=== PATIENT | male | born 1995 | race Hispanic/Latino ===

== ENCOUNTER 2018-08-11 22:20 | Emergency (ER) | payer SELFPAY ==
--- NOTE | 2018-08-11 23:16 | ER ---
Nurse's Notes [facility] Name: Evgeny Cardenas Age: 23 yrs Sex: Male : 1995 Arrival Date: 08/11/2018 Time: 22:22 Bed 5 Private MD: Diagnosis: Shortness of breath;Bronchitis, not specified as acute or chronic Presentation: 08/11 22:32 Presenting complaint: Patient states: "I went to lay down and go to sleep and then all lp1 of a sudden I felt like my lungs got tight and I couldn't get a breath and it scared me"; Patient states improvement now but still feels slight tightness in lungs; Seen previously at [facility] and given Azithromycin prescription for "bacteria in lung". Transition of care: patient was not received from another setting of care. Onset of symptoms was August 11, 2018. Risk Assessment: Do you want to hurt yourself or someone else? Patient reports no desire to harm self or others. Initial Sepsis Screen: Does the patient meet any 2 criteria? No. Patient's initial sepsis screen is negative. Does the patient have a suspected source of infection? No. Patient's initial sepsis screen is negative. Care prior to arrival: None. 22:32 Method Of Arrival: Ambulatory lp1 22:32 Acuity: ALEXANDRA 3 lp1 Historical: - Allergies: 22:37 Motrin IB; lp1 - Home Meds: 22:37 None [Active]; lp1 - PMHx: 22:37 None; lp1 - PSHx: 22:37 None; lp1 - Immunization history:: Adult Immunizations up to date. - Social history:: Smoking status: Patient/guardian denies using tobacco. - Ebola Screening: : No symptoms or risks identified at this time. Screenin:37 Abuse screen: Denies threats or abuse. Denies injuries from another. Nutritional lp1 screening: No deficits noted. Tuberculosis screening: No symptoms or risk factors identified. Fall Risk None identified. Assessment: 22:45 General: Appears in no apparent distress. uncomfortable, Behavior is cooperative, tl2 appropriate for age, anxious. Pain: Denies pain. Neuro: Level of Consciousness is awake, alert, obeys commands, Oriented to person, place, time, situation. Cardiovascular: Denies chest pain. Respiratory: Reports shortness of breath why laying flat cough that is Airway is patent Respiratory effort is even, unlabored, Respiratory pattern is regular, symmetrical. GI: No signs and/or symptoms were reported involving the gastrointestinal system. : No signs and/or symptoms were reported regarding the genitourinary system. Derm: Skin is pink, warm \\T\\ dry. 23:39 Reassessment: Patient appears in no apparent distress at this time. Patient and/or tl2 family updated on plan of care and expected duration. Pain level reassessed. Patient is alert, oriented x 3, equal unlabored respirations, skin warm/dry/pink. pt verbalized understanding of discharge instructions, need for follow up and prescription usage. Vital Signs: 22:37 BP 128 / 93; Pulse 67; Resp 16; Temp 98(O); Pulse Ox 100% on R/A; Weight 64.86 kg; lp1 Height 5 ft. 7 in. (170.18 cm); Pain 3/10; 23:39 BP 116 / 66; Pulse 69; Resp 18; Pulse Ox 98% on R/A; tl2 22:37 Body Mass Index 22.40 (64.86 kg, 170.18 cm) lp1 ED Course: 22:22 Patient arrived in ED. am2 22:25 Disha Jones FNP-C is [facility]. snw 22:25 Ted Reilly MD is Attending Physician. snw 22:25 Gerri Dash, JORDY is Primary Nurse. tl2 22:36 Triage completed. lp1 22:37 Arm band placed on left wrist. lp1 22:55 Chest Pa And Lat (2 Views) XRAY In Process Unspecified. EDMS 23:14 Patient has correct armband on for positive identification. Bed in low position. Call tl2 light in reach. Side rails up X 1. Adult w/ patient. 23:39 No provider procedures requiring assistance completed. Patient did not have IV access tl2 during this emergency room visit. Administered Medications: No medications were administered Outcome: 23:16 Discharge ordered by . snw 23:39 Discharged to home ambulatory, with family. tl2 23:39 Condition: stable 23:39 Discharge instructions given to patient, family, Instructed on discharge instructions, follow up and referral plans. medication usage, Demonstrated understanding of instructions, follow-up care, medications, Prescriptions given X 1. 23:41 Patient left the ED. tl2 Signatures: Dispatcher [employer] EDMS Disha Jones, TATYANA-C DENTIST ATTENDANT-Csnw Eileen Watkins RN RN lp1 Gerri Dash RN RN tl2 Giuliana Atkinson am2
--- NOTE | 2018-08-11 23:17 | EDPHYS ---
Physician Documentation [facility] Name: Evgeny Cardenas Age: 23 yrs Sex: Male : 1995 Arrival Date: 08/11/2018 Time: 22:22 Bed 5 Private MD: ED Physician Ted Reilly HPI: 08/11 23:04 This 23 yrs old Male presents to ER via Ambulatory with complaints of snw Shortness Of Breath. 23:04 The patient has shortness of breath at rest. Onset: The symptoms/episode began/occurred snw suddenly, 1 week(s) ago, and improved pt worked all day and then had a resurgence of s/s. Duration: The symptoms are continuous. The patient's shortness of breath is aggravated by exertion. Severity of symptoms: At their worst the symptoms were moderate. The patient has not experienced similar symptoms in the past. The patient has been recently seen by a physician: Pt seen x 2 last week in [place], rec'd shots x 2 and then a z-pack. Historical: - Allergies: 22:37 Motrin IB; lp1 - Home Meds: 22:37 None [Active]; lp1 - PMHx: 22:37 None; lp1 - PSHx: 22:37 None; lp1 - Immunization history:: Adult Immunizations up to date. - Social history:: Smoking status: Patient/guardian denies using tobacco. - Ebola Screening: : No symptoms or risks identified at this time. ROS: 22:54 Constitutional: Negative for fever, chills, and weight loss, Eyes: Negative for injury, snw pain, redness, and discharge, ENT: Negative for injury, pain, and discharge, Neck: Negative for injury, pain, and swelling, Cardiovascular: Negative for chest pain, palpitations, and edema, Abdomen/GI: Negative for abdominal pain, nausea, vomiting, diarrhea, and constipation, Back: Negative for injury and pain, : Negative for injury, bleeding, discharge, and swelling, MS/Extremity: Negative for injury and deformity, Skin: Negative for injury, rash, and discoloration, Neuro: Negative for headache, weakness, numbness, tingling, and seizure. 22:54 Respiratory: Positive for feels tight around ribs, short of breath, pt states he started to "freak out". Exam: 22:54 Constitutional: This is a well developed, well nourished patient who is awake, alert, snw and in no acute distress. Head/Face: Normocephalic, atraumatic. Eyes: Pupils equal round and reactive to light, extra-ocular motions intact. Lids and lashes normal. Conjunctiva and sclera are non-icteric and not injected. Cornea within normal limits. Periorbital areas with no swelling, redness, or edema. ENT: Nares patent. No nasal discharge, no septal abnormalities noted. Tympanic membranes are normal and external auditory canals are clear. Oropharynx with no redness, swelling, or masses, exudates, or evidence of obstruction, uvula midline. Mucous membranes moist. Neck: Trachea midline, no thyromegaly or masses palpated, and no cervical lymphadenopathy. Supple, full range of motion without nuchal rigidity, or vertebral point tenderness. No Meningismus. Chest/axilla: Normal chest wall appearance and motion. Nontender with no deformity. No lesions are appreciated. Cardiovascular: Regular rate and rhythm with a normal S1 and S2. No gallops, murmurs, or rubs. Normal PMI, no JVD. No pulse deficits. Abdomen/GI: Soft, non-tender, with normal bowel sounds. No distension or tympany. No guarding or rebound. No evidence of tenderness throughout. Back: No spinal tenderness. No costovertebral tenderness. Full range of motion. Skin: Warm, dry with normal turgor. Normal color with no rashes, no lesions, and no evidence of cellulitis. MS/ Extremity: Pulses equal, no cyanosis. Neurovascular intact. Full, normal range of motion. Neuro: Awake and alert, GCS 15, oriented to person, place, time, and situation. Cranial nerves II-XII grossly intact. Motor strength 5/5 in all extremities. Sensory grossly intact. Cerebellar exam normal. Normal gait. Psych: Awake, alert, with orientation to person, place and time. Behavior, mood, and affect are within normal limits. 22:54 Respiratory: the patient does not display signs of respiratory distress, Respirations: no acute changes, Breath sounds: are clear throughout, no bronchial sounds. Vital Signs: 22:37 BP 128 / 93; Pulse 67; Resp 16; Temp 98(O); Pulse Ox 100% on R/A; Weight 64.86 kg; lp1 Height 5 ft. 7 in. (170.18 cm); Pain 3/10; 23:39 BP 116 / 66; Pulse 69; Resp 18; Pulse Ox 98% on R/A; tl2 22:37 Body Mass Index 22.40 (64.86 kg, 170.18 cm) lp1 MDM: 22:25 Patient medically screened. snw 23:18 Data reviewed: vital signs, nurses notes. Data interpreted: Pulse oximetry: on room air snw is 100 %. Interpretation: normal. Counseling: I had a detailed discussion with the patient and/or guardian regarding: the historical points, exam findings, and any diagnostic results supporting the discharge/admit diagnosis, the presence of at least one elevated blood pressure reading (>120/80) during this emergency department visit, radiology results, the need for outpatient follow up, to return to the emergency department if symptoms worsen or persist or if there are any questions or concerns that arise at home. 08/11 22:31 Order name: Chest Pa And Lat (2 Views) XRAY snw Administered Medications: No medications were administered Disposition: 08/12 00:43 Co-signature as Attending Physician, Ted Reilly MD. rn Disposition: 08/11/18 23:16 Discharged to Home. Impression: Shortness of breath, Bronchitis, not specified as acute or chronic. - Condition is Stable. - Discharge Instructions: Hypertension, Shortness of Breath, Cool Mist Vaporizer. - Prescriptions for Albuterol Sulfate 90 mcg/actuation Inhalation - inhale 1-2 puff by INHALATION route every 6-8 hours; 1 Inhaler. - Work release form, Medication Reconciliation Form, Thank You Letter, Antibiotic Education, Prescription Opioid Use form. - Follow up: Private Physician; When: 1 week; Reason: Recheck today's complaints, Continuance of care, Re-evaluation by your physician. Follow up: Emergency Department; When: As needed; Reason: Worsening of condition. Signatures: Dispatcher [employer] EDMS Disha Jones, CAKE MAKER-C CAKE MAKER-Csnw Ted Reilly MD MD rn Pena, Laura, RN RN lp1 Gerri Dash RN RN tl2 Corrections: (The following items were deleted from the chart) 08/11 23:41 23:16 08/11/2018 23:16 Discharged to Home. Impression: Shortness of breath; Bronchitis, tl2 not specified as acute or chronic. Condition is Stable. Forms are Medication Reconciliation Form, Thank You Letter, Antibiotic Education, Prescription Opioid Use. Follow up: Private Physician; When: 1 week; Reason: Recheck today's complaints, Continuance of care, Re-evaluation by your physician. Follow up: Emergency Department; When: As needed; Reason: Worsening of condition. snw
--- NOTE | 2018-08-12 07:41 | RAD REPORT ---
EXAM DESCRIPTION: RAD - Chest Pa And Lat (2 Views) - 08/11/2018 10:54 pm CLINICAL HISTORY: Shortness of breath COMPARISON: None. TECHNIQUE: PA and lateral views of the chest were obtained. FINDINGS: The lungs are clear. Heart size is normal and central vasculature is within normal limit s. No pleural effusion or pneumothorax seen. No acute bony finding noted. No aortic abnormality. IMPRESSION: No acute cardiopulmonary process.
== END 2018-08-11 23:41 | disposition home or self-care (01) ==
LOC: ER 22:20
DX: J40 Bronchitis, not specified as acute or chronic (principal); Z88.6 Allergy status to analgesic agent
CPT/HCPCS: 71046; 99283